=== PATIENT | male | born 1940 | race Asian ===

== ENCOUNTER → 2016-09-27 | Outpatient (CLI) | payer MEDICARE ==
--- NOTE | 2016-09-27 18:47 | NM ---
EXAMINATION TYPE: NM pul vent and perfuse DATE OF EXAM: 09/27/2016 COMPARISON: NONE HISTORY: TECHNIQUE: Utilizing inhalation of 70.8 mCi Tc 99m DTPA aerosol and intravenous injection of 5.1 mCi of Tc 99m MAA, ventilation and perfusion images are acquired post injection in multiple projections. FINDINGS: There is a matched defect involving the right lung base that is probably due to pleural effusion and is demonstrated on the chest x-ray today. I see no mismatch. IMPRESSION: There is a matched defect at the right lung base related to pleural fluid. There is a low to intermed iate probability of pulmonary embolism.
[2016-09-27 19:28] LABS: Basophils # (A) 0.1 k/uL (0-0.2); Basophils % (A) 1 %; CH 30.5; CHCM 30.8; Calcium 8.5 mg/dL (8.4-10.2); Eosinophils # (A) 0.2 k/uL (0-0.7); Eosinophils % (A) 2 %; HCT 44.2 % (39.0-53.0); HDW 2.23; HGB 13.9 gm/dL (13.0-17.5); Hypochromasia Slight; Luc # (Auto) 0.17; Luc % (Auto) 2; Lymphocytes # (A) 1.7 k/uL (1.0-4.8); Lymphocytes % (A) 17 %; MCH 31.2 pg (25.0-35.0); MCHC 31.4 g/dL (31.0-37.0); MCV 99.4 fL (80.0-100.0); Mean Platelet Volume 8.3; Monocytes # (A) 0.6 k/uL (0-1.0); Monocytes % (A) 6 %; Neutrophils # (A) 7.1 k/uL (1.3-7.7); Neutrophils % (A) 73 %; Potassium 5.5 mmol/L (3.5-5.1); RBC 4.45 m/uL (4.30-5.90); RDW 14.1 % (11.5-15.5); WBC 9.8 k/uL (3.8-10.6); WBC (Perox) 10.35
[2016-09-27 21:02] LABS: Erythrocyte Sedimentation Rate 12 mm/hr (0-15)
== END | disposition home or self-care (01) ==
LOC: RADNMMAIN 17:11
PROVIDERS: ATTEND Internal Medicine
DX: R94.2 Abnormal results of pulmonary function studies (principal); R07.81 Pleurodynia; R06.00 Dyspnea, unspecified; E55.9 Vitamin D deficiency, unspecified
CPT/HCPCS: 83880; 80048; 85652; 85025; 82306; 36415; 78582; A9540; A9567